=== PATIENT | male | born 1935 ===

== ENCOUNTER 2018-04-07 11:03 | Emergency (ER) | payer OTHER ==
[~2018-04-07] VITALS: Ht 165.1 cm; Wt 81.6 kg
[2018-04-07] MEDS ORDERED: ZOCOR20 MG (11:11)
[2018-04-07] MEDS ORDERED: IRON18 MG (11:11)
[2018-04-07] MEDS ORDERED: COUMADIN3 MG (11:11)
[2018-04-07] MEDS ORDERED: METOPROLOL SUCC50 MG (11:11)
== END 2018-04-08 18:00 | disposition home or self-care (01) ==
LOC: ER 11:03
DX: D50.0 Iron deficiency anemia secondary to blood loss (chronic) (principal)